=== PATIENT | male | born 1955 | race Caucasian/White ===

== ENCOUNTER 2021-01-30 09:01 | Emergency (ER) | payer OTHER, SELFPAY ==
[2021-01-30 09:29] VITALS: BP 149/74; PULSE 78; RESP 18; TEMP 36.7; O2SAT 98; BMI 25.8
--- NOTE | 2021-01-30 09:30 | DI.RAD.S_ITS ---
PROCEDURE: XR SHOULDER RT MIN 2V INDICATIONS: trauma/ direct blow TECHNIQUE: 3 views of the shoulder were acquired. COMPARISON: None. FINDINGS: Bones: No fractures or dislocations. The right distal clavicle is high-riding above the level of the acromion, approximately 1 cm. No suspicious bony lesions. Visualized ribs appear intact. Age-appropriate bony degenerative changes are seen. Soft tissues: No suspicious soft tissue calcifications. The visualized lung demonstrates an unremarkable appearance. IMPRESSION: High-riding distal right clavicle. AC separation is suspected. Dictated by: Saeid Ruiz M.D. on 01/30/2021 at 8:53 Approved by: Saeid Ruiz M.D. on 01/30/2021 at 8:56
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
[2021-01-30 11:10] VITALS: BP 136/73; PULSE 97; RESP 16; O2SAT 96
== END 2021-01-30 11:00 | disposition home or self-care (01) ==
PROVIDERS: Emergency Provider Emergency Medicine
DX: S43.101A Unspecified dislocation of right acromioclavicular joint, initial encounter (principal); W19.XXXA Unspecified fall, initial encounter
CPT/HCPCS: 73030; 99283